=== PATIENT | female | born 1985 | race American Indian/Alaskan Native ===

== ENCOUNTER 2018-06-14 05:41 | Outpatient (CLI) | payer MEDICAID ==
[2018-06-14 06:15] VITALS: BP 106/62
[2018-06-14 08:58] LABS: Bilirubin,Urine NEG (Negative); Blood,Urine NEG (Negative); Color,Urine Straw (Yellow); Protein,Urine <15 mg/dL mg/dL (Negative); RBC,Urine < 1.0 /HPF (0.0-6.0); Urobilinogen,Urine < 2.0 mg/dL (<2.0)
== END 2018-06-14 07:19 | disposition home or self-care (01) ==
LOC: TRG 05:41
PROVIDERS: ATTEND Obstetrics & Gynecology
DX: O47.02 False labor before 37 completed weeks of gestation, second trimester (principal); O99.212 Obesity complicating pregnancy, second trimester; O99.012 Anemia complicating pregnancy, second trimester; Z3A.22 22 weeks gestation of pregnancy
CPT/HCPCS: 81001

== ENCOUNTER 2018-08-16 21:32 | Outpatient (CLI) | payer MEDICAID ==
[2018-08-16] MEDS ORDERED: LACTATED RINGERS 1,000 ML IV ONE ×2 (21:42→23:51)
[2018-08-16 21:57] VITALS: BP 99/56
[2018-08-16 22:57] LABS: Bacteria,Urine 1+ /HPF (Negative); Bilirubin,Urine NEG (Negative); Blood,Urine NEG (Negative); Calcium Oxalate Crystals,Urine 3+; Color,Urine Yellow (Yellow); Mucus,Urine FEW /HPF; Protein,Urine <15 mg/dL mg/dL (Negative); RBC,Urine < 1.0 /HPF (0.0-6.0); Urobilinogen,Urine < 2.0 mg/dL (<2.0)
[2018-08-16] MEDS ORDERED: BRETHINE SUB-Q PRN (23:51)
[2018-08-16] MEDS ORDERED: VISTARIL PO PRN (23:51)
== END 2018-08-17 01:24 | disposition home or self-care (01) ==
LOC: TRG 21:32
PROVIDERS: ATTEND Obstetrics & Gynecology
DX: O62.8 Other abnormalities of forces of labor (principal); O99.213 Obesity complicating pregnancy, third trimester; Z3A.31 31 weeks gestation of pregnancy
CPT/HCPCS: 59025; 81001; 96360; 96361; 96372; J3105; J7120; Q0177

== ENCOUNTER 2018-09-14 02:16 | Outpatient (CLI) | payer MEDICAID ==
[2018-09-14] MEDS ORDERED: LACTATED RINGERS 500 ML IV ONE (02:30)
[2018-09-14] MEDS ORDERED: LACTATED RINGERS 1,000 ML IV ONE (02:31)
[2018-09-14 02:38] VITALS: BP 110/66
[2018-09-14 03:16] LABS: Bilirubin,Urine NEG (Negative); Blood,Urine NEG (Negative); Color,Urine Yellow (Yellow); Mucus,Urine FEW /HPF; Protein,Urine <15 mg/dL mg/dL (Negative); Urobilinogen,Urine < 2.0 mg/dL (<2.0)
[2018-09-14] MEDS ORDERED: VISTARIL PO ONE (04:00)
== END 2018-09-14 04:40 | disposition home or self-care (01) ==
LOC: TRG 02:16
PROVIDERS: ATTEND Obstetrics & Gynecology
DX: O62.8 Other abnormalities of forces of labor (principal); O99.213 Obesity complicating pregnancy, third trimester; Z3A.35 35 weeks gestation of pregnancy
CPT/HCPCS: 59025; 81001; 96360; J7120; Q0177